=== PATIENT | male | born 1980 | race Caucasian/White ===

== ENCOUNTER 2018-12-30 15:06 | Inpatient (IN) | payer BC ==
[~2018-12-30 15:06] MED LIST: Iopamidol 370 76% 100 ML VIAL ONE; Iopamidol 370 76% 50 ML VIAL FS ONE
[2018-12-30] MEDS ORDERED: Ondansetron PF 4 MG/2 ML Vial ONE (15:28)
[2018-12-30] MEDS ORDERED: Adenosine 6 MG/2 ML VIAL ONE (15:28)
[2018-12-30] MEDS ORDERED: Nitroglycerin 100MG/250ML BOT 0 ML ONE (15:28)
--- NOTE | 2018-12-30 15:28 | RAD ---
PORTABLE CHEST: Date: 12/30/18 HISTORY: Chest pain. [place]. FINDINGS: Heart size is within normal limits for the portable technique. Mediastinal structures unremarkable. L ungs are clear of infiltrates. No signs of failure. IMPRESSION: No active intrathoracic disease. POS: TPC
[2018-12-30] MEDS ORDERED: Clopidogrel Bisulfate 300 MG TAB ONE (15:36)
[2018-12-30] MEDS ORDERED: Heparin 10,000 UNITS/1 ML VIAL ONE (16:00)
[2018-12-30] MEDS ORDERED: Nitroglycerin 0.4 MG TAB (25 Tab Bottle) SL PRN (16:03)
[2018-12-30] MEDS ORDERED: Morphine 4 MG/ML VIAL SLOW IVP PRN (16:03)
[2018-12-30] MEDS ORDERED: Sodium Chloride 0.9% 1,000 ML IV SCH (16:15)
[2018-12-30] MEDS ORDERED: Heparin 5,000 UNITS/ML VIAL ONE (16:50)
--- NOTE | 2018-12-30 16:52 | HP ---
HISTORY: Mr. Santiago Darden is a 38-year-old white male, otherwise healthy without any previous illnesses or cardiac problems. He said he had an onset of crushing substernal chest pressure, went to emergency room in [place]. He is uncertain exactly when it started, but the emergency room doctor told me that it started 15 to 20 minutes before he arrived there. With the distance from that hospital to [place] and possible weather delays, it was felt best to give him TNK, which was given. On his arrival here, he continued to have some discomfort and [address]-elevation in the inferior leads. It was felt the best he go to label remover emergently. PAST MEDICAL HISTORY: No history of hypertension, diabetes, or hypercholesterolemia. PAST SURGICAL HISTORY: Operations, nothing significant. MEDICATIONS: None. ALLERGIES: NONE. SIGNIFICANT SOCIAL HISTORY: He smokes 1 to 1-1/2 packs per day. PHYSICAL EXAMINATION: VITAL SIGNS: Blood pressure 132/70, pulse of 90. HEENT: PERRL. NECK: Supple. CHEST: Clear. CARDIAC: S1 and S2 normal without any S3, S4, or murmurs. ABDOMEN: Normal bowel sounds without tenderness. EXTREMITIES: Revealed no clubbing, cyanosis, or edema. NEUROLOGICAL: Grossly intact. LABORATORY DATA: EKG reveals ST elevation in inferior leads. Blood work from [place] revealed D-dimer less than 0.27. White count of 10.3, hemoglobin 14.9, hematocrit 48.2, and platelets 349,000. Sodium 138, potassium 3.6, chloride 104 , carbon dioxide 23, BUN 8, and creatinine 1.24. IMPRESSION: 1. Inferior ST elevation myocardial infarction. 2. Smoker. PLAN: Situation discussed with the patient and it was recommended that he undergo emergent catheterization since he continues to have chest discomfort and ST- segment elevation. Risks were discussed including , myocardial infarction, emergent CABG, etc. He agrees to proceed. Job ID: [id number] MTDD
[2018-12-30 19:27] VITALS: BMI 28.0
[2018-12-30 20:26] LABS: Amphetamine Not Detected (NotDetected); Barbiturates Screen Not Detected (NotDetected); Benzodiazepine Screen Not Detected (NotDetected); Cocaine Metabolite Screen Not Detected (NotDetected); Medtox Control Line Valid? VALID (VALID); Medtox Reader # READER 1; Methadone Not Detected (NotDetected); Methamphetamine Not Detected (NotDetected); Opiate Screen Detected (NotDetected); Oxycodone Screen Not Detected (NotDetected); Phencyclidine (PCP) Not Detected (NotDetected); THC/Cannabinoid Screen Not Detected (NotDetected); Tricyclic Screen Not Detected (NotDetected)
[2018-12-31 05:11] LABS: ALT (SGPT) 33 U/L (8-55); AST (SGOT) 38 U/L (5-34); Albumin 3.9 g/dL (3.5-5.0); Alkaline Phosphatase 68 U/L (40-150); Anion Gap 13 mmol/L (10-20); BUN (Urea Nitrogen) 8 mg/dL (8.9-20.6); Calc. Creatinine Clearance 115 mL/min (70-130); Calcium 8.4 mg/dL (7.8-10.44); Carbon Dioxide 20 mmol/L (22-29); Cardiac Risk 8.5 (Less than 4.5); Chloride 107 mmol/L (98-107); Cholesterol 179 mg/dl (< 200 Desired); Estimated GFR-MDRD 81; Glucose 98 mg/dL (70-105); HDL Cholesterol 21 mg/dL (>60 Neg Risk); LDL Cholesterol, Calculated 127 mg/dL; Potassium 3.9 mmol/L (3.5-5.1); Protein, Total 5.9 g/dL (6.0-8.3); Sodium 136 mmol/L (136-145); Triglycerides 155 mg/dL (Less than 150)
[2018-12-31 05:19] LABS: CKMB 42.6 ng/mL (0-6.6); Troponin I 12.089 ng/mL (< 0.028)
[2018-12-31 06:18] LABS: #Basophils 0.1 thou/uL (0.0-0.2); #Eosinphils 0.2 thou/uL (0.0-0.7); #Lymphocytes 2.8 thou/uL (1.20-3.40); #Monocytes 0.5 thou/uL (0.11-0.59); #Neutrophils 5.2 thou/uL (1.40-6.50); %Basophils 1.2 % (0.0-1.0); %Lymphocytes 31.6 % (21.0-51.0); %Monocytes 6.1 % (0.0-10.0); %Neutrophils 59.1 % (42.0-75.0); Hemoglobin 13.9 g/dL (14.0-18.0); Mean Corpuscular Hemoglobin 26.8 pg (27.0-31.0); Mean Corpuscular Volume 81.1 fL (78.0-98.0); Mean Platelet Volume 7.8 fL (7.4-10.4); Platelet Count 237 thou/uL (130-400); RBC Distribution Width 13.9 % (11.5-14.5); Red Blood Cell (RBC) Count 5.19 mill/uL (4.70-6.10); White Blood Cell (WBC) Count 8.7 thou/uL (4.8-10.8)
--- NOTE | 2018-12-31 09:00 | EKG ---
Test Reason : Blood Pressure : / mmHG Vent. Rate : 058 BPM Atrial Rate : 058 BPM P-R Int : 134 ms QRS Dur : 092 ms QT Int : 406 ms P-R-T Axes : 061 055 090 degrees QTc Int : 398 ms Sinus bradycardia Inferior infarct , possibly acute * ACUTE TX * Consider right ventricular involvement in acute inferior infarct Abnormal ECG St elevation--myocardial infarction present Confirmed by DEEP KELLEY M.D. ([id number]), communications editor JOSE STUART ([id number]) on 12/31/2018 9:00:01 AM Referred By: Confirmed By:DEEP KELLEY M.D.
[2018-12-31] MEDS: Aspirin Chewable 81 MG TAB PO SCH (09:43)
[2018-12-31] MEDS: Clopidogrel Bisulfate 75 MG TAB PO SCH (09:43)
[2018-12-31 11:12] LABS: Critical Call Chem Troponin I RESULT DECREASING
[2018-12-31 11:33] LABS: CKMB 29.4 ng/mL (0-6.6); Critical Call CKMB RESULT DECREASING
[2018-12-31] MEDS: Atorvastatin Calcium 40 MG TAB PO SCH (20:38)
[2019-01-01] MEDS: Aspirin Chewable 81 MG TAB PO SCH (08:57)
[2019-01-01] MEDS: Clopidogrel Bisulfate 75 MG TAB PO SCH (08:57)
--- NOTE | 2019-01-01 17:52 | PDOC.CTH ---
Cardiology Progress Note - Subjective He is doing well. No chest pain. Walking around the halls without issues. - Objective Vital Signs Temp Pulse Pulse Pulse Resp BP BP 01/01/19 16:50 98.0 F 65 18 01/01/19 12:00 98.3 F 65 16 01/01/19 11:51 55 L 72 101/65 114/78 01/01/19 08:45 98.6 F 62 16 BP Pulse Ox Pulse Ox Pulse Ox 01/01/19 16:50 112/70 01/01/19 12:00 114/78 01/01/19 11:51 92 L 95 01/01/19 08:45 122/69 98 Weight 175 lb 12/31/18 01/01/19 01/02/19 06:59 06:59 06:59 Intake Total 1200 2820 1200 Output Total 2550 4800 1500 Balance -1350 -1980 -300 - Physical Examination General/Neuro: alert & oriented x3, NAD Neck: no JVD present Lungs: CTA, unlabored respirations Heart: RRR Abdomen: NT/ND Extremities: other: (no edema) - Telemetry Telemetry Rhythm: NSR - Labs Result Diagrams: 12/31/18 06:00 12/31/18 04:45 Troponin/CKMB CK-MB (CK-2) 29.4 ng/mL (0-6.6) H* 12/31/18 10:33 Troponin I 6.900 ng/mL (< 0.028) H* 12/31/18 10:33 - Assessment/Plan 1. Infero posterior STEMI 2. S/P BMS to distal RCA 3. Hyperlipidemia 4. Smoker PLAN: - CHLOE for 1 month minimum ideally for 1 yr. - Low dose BB. - No ACEI/ARB as BP borderline low.
[2019-01-01] MEDS: Atorvastatin Calcium 40 MG TAB PO SCH (21:03)
[2019-01-02] MEDS: Aspirin Chewable 81 MG TAB PO SCH (09:57)
[2019-01-02] MEDS: Clopidogrel Bisulfate 75 MG TAB PO SCH (09:57)
--- NOTE | 2019-01-02 15:11 | PDOC.CTH ---
Cardiology Progress Note - Subjective No new issues. Walking around halls without issues. - Objective Vital Signs Temp Pulse Pulse Pulse Resp BP BP 01/02/19 11:28 54 L 54 L 128/66 98/66 01/02/19 08:55 97.8 F 56 L 16 01/02/19 04:00 97.5 F L 72 18 BP Pulse Ox Pulse Ox Pulse Ox 01/02/19 11:28 97 98 01/02/19 08:55 129/78 99 01/02/19 04:00 106/66 96 Weight 174 lb 01/01/19 01/02/19 01/03/19 06:59 06:59 06:59 Intake Total 2820 1680 Output Total 4800 2900 Balance -1980 -1220 - Physical Examination General/Neuro: alert & oriented x3, NAD Neck: no JVD present Lungs: CTA, unlabored respirations Heart: RRR Abdomen: NT/ND Extremities: other: (no edema) - Telemetry Telemetry Rhythm: NSR, SVT non sust - Labs Result Diagrams: 12/31/18 06:00 12/31/18 04:45 Troponin/CKMB CK-MB (CK-2) 29.4 ng/mL (0-6.6) H* 12/31/18 10:33 Troponin I 6.900 ng/mL (< 0.028) H* 12/31/18 10:33 - Assessment/Plan 1. Infero posterior STEMI 2. S/P BMS to distal RCA 3. Hyperlipidemia 4. Smoker 5. Non suatained SVT. PLAN: - CHLOE for 1 month minimum ideally for 1 yr. - Low dose BB for SVT - No ACEI/ARB as BP borderline low. - Home tomorrow if remains stable.
[2019-01-02] MEDS: Atorvastatin Calcium 40 MG TAB PO SCH (20:18)
[2019-01-03] MEDS: Clopidogrel Bisulfate 75 MG TAB PO SCH (08:32)
[2019-01-03] MEDS: Aspirin Chewable 81 MG TAB PO SCH (08:32)
[2019-01-03] MEDS ORDERED: Aspirin 81 mg Enteric Coated Tablet PO SCH (09:00)
[2019-01-03 09:37] VITALS: TEMP 97.4
[2019-01-03 10:54] VITALS: BP 115/59
--- NOTE | 2019-01-03 17:39 | DIS ---
DATE OF ADMISSION: 12/30/2018 DATE OF DISCHARGE: 01/03/2019 DISCHARGE DIAGNOSES: 1. Inferoposterior ST-elevation myocardial infarction with TNK given in [place] with continued pain on arrival, he would be 42.6, troponin I 120.89. 2. Bare metal stent placed in the distal right coronary artery. 3. Hypercholesterolemia, untreated. 4. Smoker. DISCHARGE MEDICATIONS: 1. Aspirin 81 mg daily. 2. Plavix 75 mg daily for one month. 3. Nitroglycerin 0.4 mg p.r.n. 4. Atorvastatin 40 mg daily. 5. Metoprolol 25 mg XL daily. DISCHARGE DISPOSITION: The patient to be seen in 1 month with complete metabolic profile and lipid profile being obtained. HOSPITAL COURSE: Mr. Darden presented to [facility] approximately 15 to 20 minutes after onset of crushing chest pain. He was found to have changes consistent with inferoposterior infarction. Due to the distance and possible weather delays, TNK was given. On arrival here, he continued to have 2 to 3 mm of elevation in the inferior leads and he was taken to the [facility] emergently. There, he was found to have 10% proximal LAD, normal circumflex, large normal ramus. The right coronary artery had a 70% distal lesion with significant thrombus present. Rebel 4.0 x 20 mm stent was placed in the distal right coronary artery with reduction from 70% to 0%. Left ventriculogram revealed severe inferobasal and moderate inferior hypokinesis with ejection fraction of 40% to 45%. His cholesterol is 179, triglycerides 155, HDL 21, LDL 127, and he was started on atorvastatin. He is told on a daily basis that he should never smoke or use nicotine again. At the time of discharge, he is walking 1600 feet in the [place] and was discharged. Job ID: [id number] [facility]
[2019-01-04] MEDS ORDERED: Aspirin 81 mg Enteric Coated Tablet PO SCH (09:00)
== END 2019-01-03 12:00 | disposition home or self-care (01) | DRG 249 ==
LOC: ERS 15:06 → CCU 15:38 → 2NO 01-01 02:57
PROVIDERS: ADMIT Internal Medicine Cardiovascular Disease; ATTEND Internal Medicine Cardiovascular Disease
PROC: 02703DZ Dilation of Coronary Artery, One Artery with Intraluminal Device, Percutaneous Approach (ICD-10-PCS; principal; 2018-12-30)
PROC: 4A023N7 Measurement of Cardiac Sampling and Pressure, Left Heart, Percutaneous Approach (ICD-10-PCS; 2018-12-30)
PROC: B2151ZZ Fluoroscopy of Left Heart using Low Osmolar Contrast (ICD-10-PCS; 2018-12-30)
DX: I21.11 ST elevation (STEMI) myocardial infarction involving right coronary artery (principal); I47.1 Supraventricular tachycardia; F17.210 Nicotine dependence, cigarettes, uncomplicated; E78.00 Pure hypercholesterolemia, unspecified; Z79.899 Other long term (current) drug therapy; Z79.82 Long term (current) use of aspirin
CPT/HCPCS: 36415; 71045; 80053; 80061; 80306; 82553; 84484; 85025; 85347; 92928; 93005; 93010; 93458; 93798; 99406; C1769; C1876; C1887; J0153; J1644; J2405; Q9967